=== PATIENT | male | born 1995 | race Caucasian/White ===

== ENCOUNTER 2019-03-10 05:37 | Day surgery (SDC) | payer OTHER ==
[~2019-03-10 05:37] MED LIST: CEFAZOLIN SODIUM 2 GM in DEXTROSE 5%-WATER 100 ML IV PRN
[2019-03-10] MEDS ORDERED: KETOROLAC TROMETHAMINE 60 MG/2 ML SDV ONE (07:01)
[2019-03-10] MEDS ORDERED: DEXAMETHASONE SOD PHOSPHATE INJ 4 MG/1 ML VIAL ONE (07:01)
[2019-03-10] MEDS ORDERED: FENTANYL CITRATE INJ/PF 250 MCG/5 ML AMPULE ONE (07:01)
[2019-03-10] MEDS ORDERED: MIDAZOLAM 2 MG/2 ML INJ ONE (07:01)
[2019-03-10] MEDS ORDERED: ONDANSETRON HCL INJ/PF 4 MG/2 ML SDV ONE (07:01)
[2019-03-10] MEDS ORDERED: PROPOFOL INJ 200 MG/20 ML VIAL IV ONE (07:02)
[2019-03-10] MEDS ORDERED: BUPIVACAINE HCL 0.25 % INJ/PF (2.5 MG/1 ML) 30 ML VIAL ONE (07:17)
[2019-03-10] MEDS ORDERED: MEPERIDINE HCL/PF INJ 25 MG/1 ML DISP.SYRIN IV PRN (08:12)
[2019-03-10] MEDS ORDERED: DIPHENHYDRAMINE HCL 50 MG/ML VIAL IV PRN (08:12)
[2019-03-10] MEDS ORDERED: MORPHINE SULFATE 10 MG/ML INJ IV PRN (08:12)
[2019-03-10] MEDS ORDERED: FENTANYL CITRATE INJ/PF 100 MCG/2 ML AMPUL IV PRN ×3 (08:12)
[2019-03-10] MEDS ORDERED: PROMETHAZINE HCL INJ 25 MG/1 ML VIAL IV PRN (08:12)
[2019-03-10] MEDS ORDERED: ROPIVACAINE HCL 0.5% INJ/PF (5 MG/1 ML) 30 ML SDV ONE (09:35)
[2019-03-10] MEDS ORDERED: LIDOCAINE 2% INJ (20 MG/ML) 20 ML MDV ONE (09:35)
[2019-03-10] MEDS ORDERED: LIDOCAINE 2%/EPINEPHRINE INJ 20 ML VIAL ONE (09:35)
--- NOTE | 2019-03-10 09:41 | Operative Report ---
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 Left wrist proximal row carpectomy. 2. 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 He has failed nonoperative treatments. The lunate has collapsed, fragmented, and there is fixed carpal deformity. Description of procedure: Following the induction of general anesthetic and administration of 2 g of Ancef, the patient was positioned supine on the operating room table. All bony prominences were padded. The left upper extremity was sterilely prepped with ChloraPrep and draped in standard fashion. The arm was exsanguinated and the tourniquet inflated to 250 mmHg. Dorsal incision was made. Sharp incision was made through skin with blunt dissection to the subcutaneous tissue. Care was taken to identify and protect superficial branching nerves. The extensor retinaculum was opened over the third dorsal extensor compartment. The EPL tendon was retracted radially. The fourth dorsal extensor compartment was retracted ulnarly. Ligament sparing capsulotomy was performed. Lunate was identified. The lunate was fragmented. Scapholunate ligament was detached. Scaphoid was freed and removed piecemeal. The radioscaphocapitate ligament was identified and found to be intact. The lunate was then removed piecemeal. This was followed by removal of the triquetrum. The capitate articular surface was well maintained and therefore is decided not to perform a capsular interposition. The wound was then copiously irrigated. The capsulotomy was repaired [id number] with 0 Vicryl suture. The extensor retinaculum was closed using 0 Vicryl suture. The subcutaneous tissue was closed with 3-0 Monocryl. The skin was closed with a subcuticular 3-0 Monocryl, glue, and Steri-Strips. A bulky sterile dressing and splint were applied. The patient tolerated the procedure well without complication and was brought to recovery room in stable condition.
[2019-03-10] MEDS ORDERED: OXYCODONE-ACETAMINOPHEN 5-325 MG TABLET PO PRN (09:53)
[2019-03-10] MEDS ORDERED: ONDANSETRON HCL 8 MG TABLET PO ONE (10:00)
[2019-03-10] MEDS ORDERED: ONDANSETRON HCL INJ/PF 4 MG/2 ML SDV IV PRN (10:04)
[2019-03-10] MEDS ORDERED: PROMETHAZINE HCL INJ 25 MG/1 ML VIAL ONE (11:01)
--- NOTE | 2019-03-10 11:30 | RADIOLOGY REPORT (SQ) ---
EXAM DESCRIPTION: NO CHG FLUORO; WRIST LEFT 2 VIEWS COMPLETED DATE/TIME: 03/10/2019 11:11 am REASON FOR STUDY: LEFT WRIST CARPECTOMY-ASSISTED WITH FLUORO IN OR M93.1 [place]'S DISEASE OF ADUL TS COMPARISON: None. FLUOROSCOPY TIME: 3 seconds 2 images saved to PACS. TECHNIQUE: Intra-operative images acquired during surgical procedure to evaluate progress. NUMBER OF IMAGES: 2 LIMITATIONS: None. FINDINGS: Two views of the wrist obtained during intraoperative procedure. IMPRESSION: IMAGE(S) OBTAINED DURING PROCEDURE. COMMENT: Quality ID 145: Final reports for procedures using fluoroscopy that document radiation exp osure indices, or exposure time and number of fluorographic images (if radiation exposure indices are not available) Please consult full operative report of the attending physician for description of the procedure. TECHNICAL DOCUMENTATION: JOB ID: [id number] [employer]- All Rights Reserved Reading location - IP/workstation name: [email or web address]
--- NOTE | 2019-03-10 11:30 | RADIOLOGY REPORT (SQ) ---
EXAM DESCRIPTION: NO CHG FLUORO; WRIST LEFT 2 VIEWS COMPLETED DATE/TIME: 03/10/2019 11:11 am REASON FOR STUDY: LEFT WRIST CARPECTOMY-ASSISTED WITH FLUORO IN OR M93.1 [place]'S DISEASE OF ADUL TS COMPARISON: None. FLUOROSCOPY TIME: 3 seconds 2 images saved to PACS. TECHNIQUE: Intra-operative images acquired during surgical procedure to evaluate progress. NUMBER OF IMAGES: 2 LIMITATIONS: None. FINDINGS: Two views of the wrist obtained during intraoperative procedure. IMPRESSION: IMAGE(S) OBTAINED DURING PROCEDURE. COMMENT: Quality ID 145: Final reports for procedures using fluoroscopy that document radiation exp osure indices, or exposure time and number of fluorographic images (if radiation exposure indices are not available) Please consult full operative report of the attending physician for description of the procedure. TECHNICAL DOCUMENTATION: JOB ID: [id number] [employer]- All Rights Reserved Reading location - IP/workstation name: [email or web address]
[2019-03-10 12:24] VITALS: BP 126/67
== END 2019-03-10 11:50 | disposition home or self-care (01) ==
LOC: OROUT 05:37
PROVIDERS: ATTEND Orthopaedic Surgery
DX: M93.1 Kienbock's disease of adults (principal); M87.838 Other osteonecrosis of left carpus; Z87.891 Personal history of nicotine dependence
CPT/HCPCS: 73100; 01830; 25215; 64772; J2795; J2250; J3490 ×2; J0690; J1100; J1885; J3010; J2550; J2405; J7060; J2704